=== PATIENT | male | born 1975 | race Caucasian/White ===

== ENCOUNTER → 2018-12-17 | Outpatient (CLI) | payer BC ==
[2018-12-23 22:36] LABS: Metanephrine, Free <25 pg/mL (< OR = 57); Normetanephrine, Free 39 pg/mL (< OR = 148); Total, Free (MN + NMN) 39 pg/mL (< OR = 205)
== END | disposition home or self-care (01) ==
LOC: LABWHC1 11:31
PROVIDERS: ATTEND Internal Medicine Clinical Cardiac Electrophysiology
DX: I10 Essential (primary) hypertension (principal)
CPT/HCPCS: 36415; 82088; 82533; 83835; 84244

== ENCOUNTER → 2022-11-04 | Outpatient (CLI) | payer BC ==
[2022-11-04 15:41] LABS: Basophils # (A) 0.04 X 10*3/uL (0.00-0.10); Basophils % (A) 0.6 %; Eosinophils # (A) 0.18 X 10*3/uL (0.04-0.35); Eosinophils % (A) 2.6 %; HCT 45.7 % (39.6-50.0); HGB 15.1 g/dL (13.0-17.0); Immature Grans, Automated 0.3 %; Lymphocytes # (A) 1.71 X 10*3/uL (0.90-5.00); Lymphocytes % (A) 24.7 %; MCH 30.6 pg (27.0-32.0); MCV 92.5 fL (80.0-97.0); Mean Platelet Volume 9.3 fL (9.5-12.2); Monocytes # (A) 0.54 X 10*3/uL (0.20-1.00); Monocytes % (A) 7.8 %; NRBC Per 100 WBC 0 /100 WBCS (0.0-0.0); Neutrophils # (A) 4.43 X 10*3/uL (1.80-7.70); Platelet Count 295 X 10*3/uL (140-440); RBC 4.94 X 10*6/uL (4.40-5.60); RDW 12.6 % (11.5-14.5); WBC 6.92 X 10*3/uL (4.50-10.00)
[2022-11-04 16:09] LABS: ALT 49 U/L (10-49); AST 38 U/L (14-35); African American GFR (CKD) 104.2 (60.0-200.0); Albumin 4.9 g/dL (3.8-4.9); Albumin/Globulin Ratio 2.23 (1.60-3.17); Alkaline Phosphatase 73 U/L (41-126); Blood Urea Nitrogen 13.6 mg/dL (9.0-27.0); Calcium 10.3 mg/dL (8.7-10.3); Carbon Dioxide 28.2 mmol/L (20.0-27.5); Chloride 101 mmol/L (96-109); Globulin 2.2 g/dL (1.6-3.3); Glucose 121 mg/dL (70-110); LDL Cholesterol,Calculated 105.5 mg/dL (0.0-131.0); Non-African American GFR(CKD) 89.9 (60.0-200.0); Potassium 5.2 mmol/L (3.5-5.5); Sodium 140 mmol/L (135-145); Total Protein 7.1 g/dL (6.2-8.2); VLDL Calculation 19.08 mg/dL (5.00-40.00)
== END | disposition home or self-care (01) ==
LOC: LABWHC1 07:49
PROVIDERS: ATTEND Internal Medicine Geriatric Medicine
DX: Z00.00 Encounter for general adult medical examination without abnormal findings (principal); E78.2 Mixed hyperlipidemia; N40.1 Benign prostatic hyperplasia with lower urinary tract symptoms
CPT/HCPCS: 36415; 80053; 80061; 84153; 84403; 84443; 85025

== ENCOUNTER → 2022-11-05 | Outpatient (CLI) | payer BC ==
--- NOTE | 2022-11-07 13:18 | CT ---
EXAMINATION TYPE: CT angio chest CT DLP: 864.9 mGycm, Automated exposure control for dose reduction was used. DATE OF EXAM: 11/05/2022 4:21 PM COMPARISON: None CLINICAL INDICATION:Male, 47 years old with history of I71.20; h/o thoracic aneurysm TECHNIQUE/CONTRAST: CTA scan of the thorax is performed for after IV contrast patient injected with 100 mL of Isovue 370, pulmonary embolism protocol. MIP images are created and reviewed. FINDINGS: Lungs/Pleura: No evidence of focal consolidation, pleural effusion or pneumothorax. Airway: Large airways are patent. Heart: Heart is within normal limits for size. No pericardial effusion. 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 Ectasia of the ascending thoracic aorta elena suring up to 3.8 cm. Descending thoracic aorta measures up to 2.4 cm. No intramural hematoma or disse ction. Mediastinum: No evidence of adenopathy. Musculoskeletal: No acute osseous abnormalities. Multilevel Schmorl's nodes. Soft Tissues: Bilateral gynecomastia. Lower neck: No significant findings. Upper Abdomen: Partially visualized heterogenously enhancing lesion within the right hepatic lobe elena suring up to 4.1 cm. IMPRESSION: 1. 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 Correlation with prior imaging is recommended to assess for interval change. 2. Partially visualized heterogenous slightly enhancing hepatic lesion which may represent a hemangio ma versus other etiologies. Comparison with prior imaging is recommended otherwise consider further e valuation with CT or MR abdomen without IV contrast liver mass protocol.
== END | disposition home or self-care (01) ==
LOC: RADCTMAIN 15:35
PROVIDERS: ATTEND Internal Medicine Geriatric Medicine
DX: I71.20 Thoracic aortic aneurysm, without rupture, unspecified (principal)
CPT/HCPCS: 71275; Q9967

== ENCOUNTER 2023-05-26 12:47 | Emergency (ER) | payer BC ==
--- NOTE | 2023-05-26 17:07 | ED ---
Psych HPI - General Source: patient, RN notes reviewed Mode of arrival: ambulatory Limitations: no limitations - History of Present Illness MD Complaint: suicidal ideation, feels depressed <Areli Francis - Last Filed: 05/26/23 19:39> <Chase Osborne - Last Filed: 05/26/23 20:53> - General Chief Complaint: Psychiatric Symptoms Stated Complaint: alt mental status Time Seen by Provider: 05/26/23 14:52 - History of Present Illness Initial Comments: This is a 47-year-old male who presents to the emergency department for psychiatric evaluation. Patient reports suicidal ideations and increasing depression. Patient has been going through a divorce since October of this year. States that this is the largest trigger for his symptoms. Reports being treated poorly by his and daughters. He has also experienced a substantial weight loss. He was initially coping with alcohol, but has not used this in several months. Denies any drug use. Denies any specific plans with regards to the suicidal ideations and he denies any homicidal ideations. Over the last 3 weeks, he also notes experiencing auditory hallucinations that are waking him up at night and making it difficult for him to sleep more than a few hours at a time. Not currently taking any psychiatric medication. (Areli Francis) - Related Data Home Medications Medication Instructions Recorded Confirmed Valsartan/Hydrochlorothiazide 1 tab PO DAILY 05/26/23 05/26/23 [Valsartan-Hctz 320-25 mg Tab] Allergies Allergy/AdvReac Type Severity Reaction Status Date / Time No Known Allergies Allergy Verified 05/26/23 17:40 Review of Systems ROS Other: All systems not noted in ROS Statement are negative. <Areli Francis - Last Filed: 05/26/23 19:39> ROS Other: All systems not noted in ROS Statement are negative. <Chase Osborne - Last Filed: 05/26/23 20:53> ROS Statement: Those systems with pertinent positive or pertinent negative responses have been documented in the HPI. Past Medical History Past Medical History: Hypertension History of Any Multi-Drug Resistant Organisms: None Reported Past Surgical History: Orthopedic Surgery Past Psychological History: No Psychological Hx Reported Smoking Status: Current every day smoker, Vaper Past Alcohol Use History: None Reported Past Drug Use History: Marijuana <Areli Francis - Last Filed: 05/26/23 19:39> General Exam Limitations: no limitations General appearance: alert, in no apparent distress Head exam: Present: atraumatic, normocephalic, normal inspection Respiratory exam: Present: normal lung sounds bilaterally. Absent: respiratory distress, wheezes, rales, rhonchi, stridor Cardiovascular Exam: Present: regular rate, normal rhythm, normal heart sounds. Absent: systolic murmur, diastolic murmur, rubs, gallop, clicks Neurological exam: Present: alert, oriented X3, CN II-XII intact Psychiatric exam: Present: normal mood, flat affect, suicidal ideation. Absent: homicidal ideation Skin exam: Present: warm, dry, intact, normal color. Absent: rash <Areli Francis - Last Filed: 05/26/23 19:39> Course Vital Signs 05/26/23 12:56 Temperature 98.1 F Pulse Rate 71 Respiratory 20 Rate Blood Pressure 151/103 O2 Sat by Pulse 99 Oximetry Medical Decision Making <Areli Francis - Last Filed: 05/26/23 19:39> <Chase Osborne - Last Filed: 05/26/23 20:53> - Medical Decision Making This is a 47-year-old male who presents to the emergency department for psychiatric evaluation. Was pt. sent in by a medical professional or institution? @ -No Did you speak to anyone other than the patient for history? @ -No Did you review nursing and triage notes? @ -Yes, and I agree, it is accurate with regards to the patient's symptoms. Were old charts reviewed? @ -No Differential Diagnosis? @ -Differential Mental Health Depression, anxiety, bipolar, psychosis, schizophrenia, borderline personality, situational depression, adjustment disorder, behavioral disorder, brain tumor, malingering, substance abuse, encephalopathy, medication reaction, dementia, hypothyroidism, degenerative neurologic disorder, lupus.... This is not meant to be all-inclusive list EKG interpreted by me (3pts min.)? @ -Not obtained X-rays interpreted by me (1pt min.)? @ -Not obtained CT interpreted by me (1pt min.)? @ -Not obtained U/S interpreted by me (1pt. min.)? @ -Not obtained What testing was considered but not performed? (CT, X-rays, U/S, labs)? Why? @ -None What meds were considered but not given? Why? @ -None Did you discuss the management of the patient with other professionals? @ -No Did you reconcile home meds? @ -No Was smoking cessation discussed for >3mins.? @ -No Was critical care preformed (if so, how long)? @ -No Were there social determinants of health that impacted care today? How? (Homelessness, low income, unemployed, alcoholism, drug addiction, transportation, low edu. Level, literacy, decrease access to med. care, snf, rehab)? @ -No Was there de-escalation of care discussed even if they declined? (Discuss DNR or withdrawal of care, Hospice)? @ -No What co-morbidities impacted this encounter? (DM, HTN, Smoking, COPD, CAD, Cancer, CVA, Hep., AIDS, mental health diagnosis, sleep apnea, morbid obesity)? @ -None Was patient admitted / discharged? @ -Patient's BAT was 0 and he was cleared for EPS evaluation. UDS negative as well. Case signed out to Eleonora Luciano PA-C, pending EPS evaluation. Undiagnosed new problem with uncertain prognosis? @ -None Drug Therapy requiring intensive monitoring for toxicity (Heparin, Nitro, Insulin, Cardizem)? @ -None Were any procedures done? @ -None (Areli Francis) I did speak with mental health nurse who recommends patient admission or transfer. Patient reevaluated by myself. Patient omits to be depressed with suicidal thoughts and auditory hallucinations. Patient has not been eating or sleeping well. Positive clinical certificate completed. Diagnosis: Depression Acute (Chase Osborne) - Lab Data Lab Results 05/26/23 Range/Units 16:50 Urine Opiates Screen Not Detected (NotDetected) Ur Oxycodone Screen Not Detected (NotDetected) Urine Methadone Screen Not Detected (NotDetected) Ur Propoxyphene Screen Not Detected (NotDetected) Ur Barbiturates Screen Not Detected (NotDetected) U Tricyclic Antidepress Not Detected (NotDetected) Ur Phencyclidine Scrn Not Detected (NotDetected) Ur Amphetamines Screen Not Detected (NotDetected) U Methamphetamines Scrn Not Detected (NotDetected) U Benzodiazepines Scrn Not Detected (NotDetected) Urine Cocaine Screen Not Detected (NotDetected) U Marijuana (THC) Screen Not Detected (NotDetected) Disposition <Areli Francis - Last Filed: 05/26/23 19:39> Is patient prescribed a controlled substance at d/c from ED?: No Time of Disposition: 20:53 <Chase Osborne - Last Filed: 05/26/23 20:53> Clinical Impression: Depression, Suicidal ideation Disposition: TRANSFER TO PSYCH HOSP/UNIT Referrals: Henry Lui MD [Primary Care Provider] - 1-2 days
[2023-05-26 17:48] LABS: Amphetamine Screen,Urine Not Detected (NotDetected); Barbiturate Screen,Urine Not Detected (NotDetected); Benzodiazepines Screen,Urine Not Detected (NotDetected); Cocaine Screen,Urine Not Detected (NotDetected); Methadone Screen, Urine Not Detected (NotDetected); Opiate Screen,Urine Not Detected (NotDetected); Oxycodone Screen, Urine Not Detected (NotDetected); Phencyclidine Screen,Urine Not Detected (NotDetected); Tricyclic Antidepressant,Urine Not Detected (NotDetected); Urn Cannabinoid Scrn Not Detected (NotDetected)
[2023-05-27 06:11] VITALS: RESP 18
[2023-05-27 08:49] VITALS: BP 117/73; PULSE 69; TEMP 98.3
== END 2023-05-27 14:16 ==
LOC: EC 12:47
DX: R45.851 Suicidal ideations (principal); F32.A Depression, unspecified; I10 Essential (primary) hypertension; F17.290 Nicotine dependence, other tobacco product, uncomplicated; F12.90 Cannabis use, unspecified, uncomplicated; Z79.899 Other long term (current) drug therapy; Z20.822 Contact with and (suspected) exposure to COVID-19
CPT/HCPCS: 80306; 82075; 87635; 99285

== ENCOUNTER → 2023-08-20 | Outpatient (CLI) | payer BC ==
[2023-08-20 15:23] LABS: ALT 17 U/L (10-49); AST 23 U/L (14-35); Albumin 4.4 g/dL (3.8-4.9); Alkaline Phosphatase 71 U/L (41-126); BUN/Creat Ratio 16.88 Ratio (12.00-20.00); Blood Urea Nitrogen 13.5 mg/dL (9.0-27.0); Calcium 9.6 mg/dL (8.7-10.3); Carbon Dioxide 28.4 mmol/L (21.6-31.8); Chloride 105 mmol/L (96-109); Chol/HDL Ratio 3.02 Ratio; Creatine Kinase 119 U/L (35-257); Globulin 2.2 g/dL (1.6-3.3); Glucose 107 mg/dL (70-110); LDL Cholesterol,Calculated 85.9 mg/dL (0.0-131.0); Potassium 4.6 mmol/L (3.5-5.5); Sodium 146 mmol/L (135-145); Total Bilirubin 0.4 mg/dL (0.3-1.2); Total Protein 6.6 g/dL (6.2-8.2); VLDL Calculation 14.46 mg/dL (5.00-40.00)
== END | disposition home or self-care (01) ==
LOC: LABWHC1 07:33
PROVIDERS: ATTEND Internal Medicine Geriatric Medicine
DX: E78.2 Mixed hyperlipidemia (principal)
CPT/HCPCS: 36415; 80053; 80061; 82550